=== PATIENT | male | born 1945 | race Caucasian/White ===

== ENCOUNTER → 2019-02-10 | Outpatient (CLI) | payer MEDICARE, OTHER ==
[~2019-02-10] MED LIST: HUMALOG JU100 UNIT/1 SUBQ; LANTUS SOL100 UNIT/1 SUBQ; LIPITOR 10 MG10 M1 PO; LISINOPRIL2.5 MG PO; METFORMIN HCL500 M3 PO; NOVOLOG FL100 UNIT/M SC
== END ==
LOC: M.PC 10:30
DX: M50.10 Cervical disc disorder with radiculopathy, unspecified cervical region (principal); M47.22 Other spondylosis with radiculopathy, cervical region; M25.511 Pain in right shoulder; Z79.899 Other long term (current) drug therapy